=== PATIENT | female | born 1945 | race Caucasian/White ===

== ENCOUNTER 2022-09-25 22:35 | Inpatient (IN) | payer MEDICARE, OTHER ==
[~2022-09-25] VITALS: Ht 162.6 cm; Wt 92.1 kg
--- NOTE | 2022-09-25 22:48 | NUR ---
WALTER FROM [facility] FOR SOB, RA 85%, PLACED ON NRB 15LPM SAT 99%. PT IS CONFUSED. CONNECTED TO POX AND HEART MONITOR. ON NRB 8LPM, O2SAT 95%. CONNER CATH NOTED ON ARRIVAL.
--- NOTE | 2022-09-25 22:50 | NUR ---
CHARI GRANDCHILD [phone]
--- NOTE | 2022-09-25 22:57 | NUR ---
LFA20G EST UNABLE TO GET BLOOD
--- NOTE | 2022-09-25 22:57 | NUR ---
URINE COLLECTED AND SENT TO LAB
--- NOTE | 2022-09-25 22:58 | NUR ---
LAB AT BEDSIDE
--- NOTE | 2022-09-25 23:04 | NUR ---
MOVE SHEET SUBMITTED.
--- NOTE | 2022-09-25 23:08 | NUR ---
XRAY AT BEDSIDE
--- NOTE | 2022-09-25 23:10 | NUR ---
COVID SWAB DONE AND SENT TO LAB
[2022-09-25] MEDS ORDERED: DILTIAZEM HCL 25 MG IV ONE (23:21)
[2022-09-25] MEDS ORDERED: DILTIAZEM HCL 50 MG IV IV ONE (23:30)
[2022-09-25 23:41] LABS: BASOPHILS % (AUTO) 0.2 % (0.0-2.0); EOSINOPHILS % (AUTO) 3.5 % (0.0-6.0); HEMATOCRIT 29 % (33-45); HEMOGLOBIN 9.2 g/dL (11.5-14.8); LYMPHOCYTES # (AUTO) 0.4 K/uL (0.8-4.8); LYMPHOCYTES % (AUTO) 3.5 % (20.0-44.0); MEAN CORPUSCULAR HGB CONC 32 g/dl (31.0-36.0); MEAN CORPUSCULAR VOLUME 83 fL (82-100); MONOCYTES % (AUTO) 8.4 % (2.0-12.0); NEUTROPHILS # (AUTO) 9.6 K/uL (1.8-8.9); NEUTROPHILS % (AUTO) 84.4 % (43.0-81.0); PLATELET COUNT (AUTO) 257 K/uL (150-450); WHITE BLOOD COUNT (AUTO) 11.4 K/uL (4.3-11.0)
[2022-09-25 23:57] LABS: CALCIUM, SERUM 9.4 mg/dL (8.5-10.1); CARBON DIOXIDE 33 mmol/L (21-32); CHLORIDE 96 mmol/L (98-107); CREATININE 2.5 mg/dL (0.6-1.3); GLUCOSE 230 mg/dL (74-106); POTASSIUM 4.2 mmol/L (3.5-5.1); SODIUM SERUM 137 mmol/L (136-145); UREA NITROGEN, BLOOD 63 mg/dL (7-18)
[2022-09-26] VITALS (15 sets, daily range): BP systolic 123–157; BP diastolic 55–99
--- NOTE | 2022-09-26 00:11 | NUR ---
TROP 53
[2022-09-26 00:15] LABS: ALANINE AMINOTRANSFERASE 28 U/L (12-78); ALBUMIN 2.4 g/dL (3.4-5.0); ALKALINE PHOSPHATASE 101 U/L (46-116); ASPARTATE AMINOTRANSFERASE 33 U/L (15-37); BILIRUBIN,DIRECT 0.3 mg/dL (0.0-0.2); BILIRUBIN,TOTAL 0.5 mg/dL (0.2-1.0); TOTAL PROTEIN, SERUM 7.6 g/dL (6.4-8.2)
[2022-09-26] MEDS ORDERED: ASPIRIN 325 MG TABLET PO ONE (00:30)
[2022-09-26] MEDS ORDERED: FUROSEMIDE 40 MG/4 ML VIAL ONE (00:54)
[2022-09-26] MEDS ORDERED: ASPIRIN 325 MG TABLET ONE (00:54)
[2022-09-26] MEDS ORDERED: FUROSEMIDE 40 MG/4 ML VIAL IV ONE (01:00)
[2022-09-26 01:10] LABS: BILIRUBIN,URINE NEGATIVE (NEGATIVE); COLOR,URINE DARK YELLOW (YELLOW); LEUKOCYTE ESTERASE ,URINE TRACE (NEGATIVE); NITRITE, URINE NEGATIVE (NEGATIVE); PH,URINE 5.5 (5.0-8.0); PROTEIN,URINE 2+ mg/dl (NEGATIVE); UGLUCOSE TRACE mg/dL (NEGATIVE); UROBILINOGEN,URINE 0.2 EU/dL (0.2)
[2022-09-26 01:13] LABS: BACTERIA,URINE Rare /HPF (None Seen); SQUAMOUS EPITHELIAL CELL,UR Few /HPF (None Seen)
--- NOTE | 2022-09-26 02:11 | NUR ---
[facility] PAGED
--- NOTE | 2022-09-26 03:03 | NUR ---
report given to jennifer zarate for neno
--- NOTE | 2022-09-26 03:08 | NUR ---
RN ADMITTING NOTE RECEIVED PATIENT FROM ER VIA GURNEY ACCOMPANIED BY 2 ER STAFF, TRANSFERRED TO BED VIA 3 PERSON ASSIST, PT AO X 3-4, IN NO ACUTE DISTRESS, SATURATION AT 94% ON 5L VIA NC, SR ON THE MONITOR , HR IS 95. IV LINE AT LFA 20G, AND RAC 20G PATENT AND FLUSHING WELL. CONNER CATHETER DRAINING TO A CLEAR, YELLOW OUTPUT. COMPREHENSIVE ASSESSMENT DONE, NO SKIN ISSUES NOTED. SAFETY MEASURES IN PLACE, BED IS LOCKED AND AT LOWEST POSITION, HOB ELEVATED, CALL LIGHT WITHIN REACH OF PATIENT. WILL MONITOR AND FOLLOW UP ON ADMITTING ORDERS.
--- NOTE | 2022-09-26 03:23 | NUR ---
pt transferred to [place] via acls protocol
[2022-09-26] MEDS ORDERED: HYDR-500 PO (03:52)
[2022-09-26] MEDS ORDERED: CYAN10006 IM (03:52)
[2022-09-26] MEDS ORDERED: MUPI22OI2 TP (03:52)
[2022-09-26] MEDS ORDERED: COLC0.6C3 PO (03:52)
[2022-09-26] MEDS ORDERED: ONDA4TAB11 PO (03:52)
[2022-09-26] MEDS ORDERED: SIME80TA15 PO (03:52)
[2022-09-26] MEDS ORDERED: SPIR25TA6 PO (03:52)
[2022-09-26] MEDS ORDERED: DIPH1TAB PO (03:52)
[2022-09-26] MEDS ORDERED: FLUT100D NS (03:52)
[2022-09-26] MEDS ORDERED: EZET10TA16 PO (03:52)
[2022-09-26] MEDS ORDERED: TEMA15CA PO (03:52)
[2022-09-26] MEDS ORDERED: CLOP75TA15 PO (03:52)
[2022-09-26] MEDS ORDERED: AMLO-212 PO (03:52)
[2022-09-26] MEDS ORDERED: FENO145T21 PO (03:52)
[2022-09-26] MEDS ORDERED: ERGO500040 PO (03:52)
[2022-09-26] MEDS ORDERED: LINA290C PO (03:52)
[2022-09-26] MEDS ORDERED: METO-357 PO (03:52)
[2022-09-26] MEDS ORDERED: IRBE1TAB41 PO (03:52)
[2022-09-26] MEDS ORDERED: INSU100V42 PO (03:52)
[2022-09-26] MEDS ORDERED: CLON0.1T PO (03:52)
[2022-09-26] MEDS ORDERED: FURO20TA4 PO (03:52)
[2022-09-26] MEDS ORDERED: hydrOXYzine HCL SYRUP 10 MG/5 ML UDC PO PRN (04:30)
[2022-09-26] MEDS ORDERED: DEXTROSE 50%-WATER 50 ML DISP.SYRIN IV PRN (04:30)
[2022-09-26] MEDS ORDERED: ONDANSETRON HCL/PF 4 MG/2 ML VIAL IVP PRN (04:30)
[2022-09-26] MEDS ORDERED: CLONIDINE HCL 0.1 MG TABLET PO PRN (04:30)
[2022-09-26 04:45] LABS: BASOPHILS % (AUTO) 0.3 % (0.0-2.0); EOSINOPHILS % (AUTO) 4.2 % (0.0-6.0); HEMATOCRIT 27 % (33-45); HEMOGLOBIN 8.8 g/dL (11.5-14.8); LYMPHOCYTES # (AUTO) 0.5 K/uL (0.8-4.8); LYMPHOCYTES % (AUTO) 4.5 % (20.0-44.0); MEAN CORPUSCULAR HGB CONC 32 g/dl (31.0-36.0); MEAN CORPUSCULAR VOLUME 83 fL (82-100); MONOCYTES % (AUTO) 10.2 % (2.0-12.0); NEUTROPHILS # (AUTO) 8.1 K/uL (1.8-8.9); NEUTROPHILS % (AUTO) 80.8 % (43.0-81.0); PLATELET COUNT (AUTO) 256 K/uL (150-450); RED BLOOD CELL COUNT(AUTO) 3.29 MIL/uL (4.0-5.2)
[2022-09-26 05:15] LABS: CALCIUM, SERUM 8.8 mg/dL (8.5-10.1); CARBON DIOXIDE 31 mmol/L (21-32); CHLORIDE 94 mmol/L (98-107); CREATININE 2.3 mg/dL (0.6-1.3); GLUCOSE 217 mg/dL (74-106); MAGNESIUM 1.8 mg/dL (1.8-2.4); PHOSPHORUS 5.1 mg/dL (2.5-4.9); POTASSIUM 4.3 mmol/L (3.5-5.1); SODIUM SERUM 133 mmol/L (136-145); UREA NITROGEN, BLOOD 66 mg/dL (7-18)
[2022-09-26] MEDS ORDERED: CEFEPIME 2 GM in IV D5W 100 ML IV ONE (05:30)
[2022-09-26] MEDS ORDERED: CEFEPIME 1 GM VIAL ONE (05:34)
[2022-09-26 05:41] LABS: CHOLESTEROL 83 mg/dL (<200); HDL CHOLESTEROL 14 mg/dL (40-60); LDL 36 mg/dL (0-99); TRIGLYCERIDES 176 mg/dL (30-150)
--- NOTE | 2022-09-26 07:00 | NUR ---
OPEN ENGINE PILOT NOTE: AWAKE AND ALERT X4. MOIST ORAL MUCOSA. ON 02 5LPM NC SATING AT 93%. RHEUMATOLOGY NURSE SINUS RHYTHM 96. DENIES PAIN OR DISCOMFORT. CONNER CATHETER IN PLACE WITH YELLOW URINE. HOB ELEVATED. BILATERAL HALF SIDE RAILS UP X2. BED IN LOW POSITION, EXIT ALARM ON, CALL LIGHT IN REACH. DECLINES PAIN OR DISCOMFORT. IV LINES PATENT, NO S/S OF COMPLICATIONS.
[2022-09-26] MEDS: BLOOD SUGAR DIAGNOSTIC 1 EACH STRIP IN SCH ×4 (07:58→21:42)
[2022-09-26] MEDS: INSULIN REGULAR, HUMAN 100 UNIT/ML 3 ML VIAL SQ PRN ×4 (08:00→21:44)
[2022-09-26 09:00] LABS: ABG BASE EXCESS 3.4 mmol/L; ABG OXYGEN SATURATION 90.2 % (92.0-98.5); ABG PH 7.346 (7.350-7.450); ABG PO2 63.7 mmHg (75.0-100.0); AaDO2 157.1 mmHg; COHb 0.5 % (0.5-1.5); MetHb 0.2 % (0.0-1.5); O2Hb 89.6 % (94.0-97.0); SITE, ABG Right Radial; VENT MODE, BG NASAL CANNULA
[2022-09-26] MEDS: FLUTICASONE PROPIONATE 16 GM BOTTLE NS SCH ×2 (09:04→16:22)
[2022-09-26] MEDS: CLOPIDOGREL BISULFATE 75 MG TABLET PO SCH (09:05)
[2022-09-26] MEDS: EZETIMIBE 10 MG TABLET PO SCH (09:05)
[2022-09-26] MEDS: AMLODIPINE BESYLATE 5 MG TABLET PO SCH (09:05)
[2022-09-26] MEDS: COLCHICINE 0.6 MG TABLET PO SCH (09:05)
[2022-09-26] MEDS: METOPROLOL SUCCINATE 50 MG TAB.SR.24H PO SCH (09:06)
[2022-09-26] MEDS: FENOFIBRATE NANOCRYS (145 MG) 145 MG TABLET PO SCH (09:09)
[2022-09-26] MEDS: HEPARIN SODIUM, PORCINE 5000 UNITS/1 ML VIAL SQ SCH ×2 (09:13→21:20)
[2022-09-26] MEDS: FUROSEMIDE 100 MG/10 ML VIAL IV SCH ×3 (09:15→16:17)
--- NOTE | 2022-09-26 10:13 | NUR ---
Bedside report given to Lili ICU nurse.
--- NOTE | 2022-09-26 10:15 | NUR ---
PATIENT TRANSFERRED TO ICU FOR RESCUE BIPAP. PATIENT AWAKE, ALERT AND ORIENTED UPON ARRIVAL ON O2 N/C AT 4L . NO RESPIRATORY DISTRESS. SR ON 90'S WITH OCCASIONAL PAC'S ON MONITOR. SPO2 88-91 %. SEEN BY RT, MAINTAINED AT 3L N/C FOR NOW SINCE PATIENT IS FULLY AWAKE. WILL CONTINUE TO MONITOR CLOSELY. AWAITS FOR SOFTWARE QUALITY AUTOMATION ENGINEER.
--- NOTE | 2022-09-26 10:31 | NUR ---
1010: Patient transferred to ICU as ordered with bed, Elizabeth granddaughter at bedside.
--- NOTE | 2022-09-26 11:02 | NUR ---
RN NOTES RECEIVED REPORT FROM JIN DOE FOR CONTINUATION OF CARE. PT LOOKS COMFORTABLE ON 5L NC W/NO SIGNS OF SOB AT THIS TIME.
--- NOTE | 2022-09-26 12:50 | NUR ---
RN NOTES NOTIFIED EWSLEY (MANAGER ETHICS) THAT PT IS COMPLAINING OF CONSTIPATION. RECEIVED ONE TIME ORDER FOR DULCOLAX 10 MG SUPPOSITORY. IF SUPPOSITORY DOESN'T WORK, RECEIVED ORDER TO PLACE A ONE TIME FLEET ENEMA.
[2022-09-26] MEDS ORDERED: BISACODYL SUPP (10 MG) 10 MG/SUPP.RECT SUPP.RECT RC PRN (13:00)
--- NOTE | 2022-09-26 16:13 | NUR ---
NM LUNG VQ WAS COMPLETED. TECH:RB
[2022-09-26] MEDS: POLYETHYLENE GLYCOL 3350 17 GM POWD.PACK PO SCH (16:24)
[2022-09-26] MEDS ORDERED: NA PHOS,M-B/NA PHOS,DI-BA 1 EA ENEMA RC ONE (16:30)
--- NOTE | 2022-09-26 19:41 | NUR ---
RN CLOSING NOTES PT LOOKS COMFORTABLE. NO COMPLAINT OF PAIN AT THIS TIME, ALL DUE MEDS GIVEN. REPORT GIVEN TO ARJUN DOE FOR CONTINUATION OF CARE.
--- NOTE | 2022-09-26 19:45 | NUR ---
RN NOTE Received pt in bed, alert, awake, and verbally responsive. Pt. on 3L O2 via NC, O2 sat- 87-90%, noted with slight SOB. Attached to bedside monitor, reading SR HR95. Denies pain or discomfort at this time. PIV access on LFA #20G and RAC #20G, patent and flush well, both on SL. Stokes cath in placed, patent and secured, draining clear yellow urine by gravity. Safety precaution implemented. Call light light within easy reach. HOB elevated for comfort. Family at bedside. Will cont POC.
[2022-09-27] VITALS (19 sets, daily range): BP systolic 122–186; BP diastolic 52–103
[2022-09-27] MEDS: CEFEPIME 2 GM in IV D5W 100 ML IV SCH (05:17)
[2022-09-27 05:23] LABS: BASOPHILS % (AUTO) 0.2 % (0.0-2.0); EOSINOPHILS % (AUTO) 4.2 % (0.0-6.0); HEMATOCRIT 27 % (33-45); HEMOGLOBIN 8.7 g/dL (11.5-14.8); LYMPHOCYTES # (AUTO) 0.4 K/uL (0.8-4.8); MEAN CORPUSCULAR HGB CONC 33 g/dl (31.0-36.0); MEAN CORPUSCULAR VOLUME 83 fL (82-100); MONOCYTES # (AUTO) 0.9 K/uL (0.1-1.30); MONOCYTES % (AUTO) 10.7 % (2.0-12.0); NEUTROPHILS # (AUTO) 6.7 K/uL (1.8-8.9); NEUTROPHILS % (AUTO) 79.9 % (43.0-81.0); PLATELET COUNT (AUTO) 293 K/uL (150-450); WHITE BLOOD COUNT (AUTO) 8.4 K/uL (4.3-11.0)
[2022-09-27 05:39] LABS: ABG OXYGEN SATURATION 88.1 % (92.0-98.5); ABG PCO2 58.3 mmHg (35.0-45.0); ABG PH 7.365 (7.350-7.450); ABG PO2 61.8 mmHg (75.0-100.0); AaDO2 98.2 mmHg; COHb 0.5 % (0.5-1.5); MetHb 0.3 % (0.0-1.5); O2Hb 87.4 % (94.0-97.0); SITE, ABG Right Radial; VENT MODE, BG N/C 32%
[2022-09-27 05:54] LABS: ALANINE AMINOTRANSFERASE 32 U/L (12-78); ALBUMIN 2.2 g/dL (3.4-5.0); ALKALINE PHOSPHATASE 99 U/L (46-116); ASPARTATE AMINOTRANSFERASE 30 U/L (15-37); BILIRUBIN,TOTAL 0.4 mg/dL (0.2-1.0); CARBON DIOXIDE 33 mmol/L (21-32); CHLORIDE 94 mmol/L (98-107); CREATININE 2.4 mg/dL (0.6-1.3); GLUCOSE 216 mg/dL (74-106); PHOSPHORUS 6.6 mg/dL (2.5-4.9); POTASSIUM 4.3 mmol/L (3.5-5.1); SODIUM SERUM 136 mmol/L (136-145); TOTAL PROTEIN, SERUM 7.2 g/dL (6.4-8.2); UREA NITROGEN, BLOOD 78 mg/dL (7-18)
[2022-09-27 06:05] LABS: THYROID STIMULATING HORMONE 1.008 uIU/mL (0.358-3.74)
[2022-09-27 06:19] LABS: IRON, SERUM 38 ug/dl (50-175); TOTAL IRON BINDING CAPACITY 241 ug/dl (250-450)
--- NOTE | 2022-09-27 06:50 | NUR ---
RN NOTE Pt remains in stable condition. No significant changes noted during the shift. No change on LOC. Remains on O2, currently on 2L via NC, no SOB, no acute resp distress noted, O2 sat- 95%. Afebrile. All needs attended. Kept pt clean, dry and comfortable. Call light within reach. HOB elevated. Safety precautions implemented. Bed locked and in lowest position, bed alarm on. Will endorse to AM shift nurse for continuity of care.
--- NOTE | 2022-09-27 07:00 | NUR ---
PHOTOGRAMMETRIST OPENING NOTES: RECEIVED PT IN BED AWAKE ALERT AND ORIENTED X 4, NOT IN PAIN OR DISCOMFORT, WITH MILD SOB, ON O2 2LITER VIA NC, O2 SAT 94%LEFT FA SALINE LOCK PATENT AND FLUSHING WELL AND RUNNING NS TKO,BED IN LOW AND LOCKED POSITION, CALL LIGHT WITHIN REACH, SIDE RAILS UP. CONNER CATHETER PATENT AND DRAINING WILL, WILL MONITOR
--- NOTE | 2022-09-27 07:00 | NUR ---
RN NOTE Critical ABG result relayed to KESHA Hernandez. Awaiting for reply. Will endorse to AM shift nurse
[2022-09-27] MEDS: BLOOD SUGAR DIAGNOSTIC 1 EACH STRIP IN SCH ×4 (07:43→22:21)
[2022-09-27] MEDS: INSULIN REGULAR, HUMAN 100 UNIT/ML 3 ML VIAL SQ PRN ×4 (07:44→22:38)
[2022-09-27] MEDS ORDERED: BUMETANIDE INJ 16 MG in IV NS 0.9% 16 ML IV ONE (08:00)
[2022-09-27] MEDS: FLUTICASONE PROPIONATE 16 GM BOTTLE NS SCH ×2 (08:25→17:00)
[2022-09-27] MEDS: METOPROLOL SUCCINATE 50 MG TAB.SR.24H PO SCH (08:25)
[2022-09-27] MEDS: FENOFIBRATE NANOCRYS (145 MG) 145 MG TABLET PO SCH (08:25)
[2022-09-27] MEDS: CLOPIDOGREL BISULFATE 75 MG TABLET PO SCH (08:25)
[2022-09-27] MEDS: AMLODIPINE BESYLATE 5 MG TABLET PO SCH (08:26)
[2022-09-27] MEDS: COLCHICINE 0.6 MG TABLET PO SCH (08:26)
[2022-09-27] MEDS: EZETIMIBE 10 MG TABLET PO SCH (08:26)
[2022-09-27] MEDS: HEPARIN SODIUM, PORCINE 5000 UNITS/1 ML VIAL SQ SCH ×2 (08:27→22:20)
[2022-09-27] MEDS ORDERED: LOSARTAN/HCTZ 50-12.5MG/ 1 EA TABLET PO SCH (09:00)
[2022-09-27] MEDS: POLYETHYLENE GLYCOL 3350 17 GM POWD.PACK PO SCH (09:00)
--- NOTE | 2022-09-27 09:11 | NUR ---
RN NOTES: PT REFUSED MIRALAX SAID SHE HAD 3 BM LAST NIGHT AND 1 AROUND 7:30 AM
--- NOTE | 2022-09-27 10:03 | NUR ---
RN NOTES: O2 SAT 84% ON 4 LITER OXYGEN VIA NC TITRATED TO 4L/MIN VIA NC O2 SAT BECAME 90%
[2022-09-27] MEDS: ACETAMINOPHEN 325 MG TABLET PO PRN (16:40)
--- NOTE | 2022-09-27 19:31 | NUR ---
MECHANICAL ENGINEERING TECHNOLOGIST CLOSING NOTES: AWAKE AND ALERT X4. . ON 02 4LPM NC SATING AT 93%. TRACK OILER SINUS RHYTHM 96. DENIES PAIN OR DISCOMFORT. CONNER CATHETER IN PLACE WITH YELLOW URINE. HOB ELEVATED. BILATERAL HALF SIDE RAILS UP X2. BED IN LOW POSITION, EXIT ALARM ON, CALL LIGHT IN REACH. DECLINES PAIN OR DISCOMFORT. IV LINES PATENT, NO S/S OF COMPLICATIONS.ENDORSED TO OIL HEAT TECHNICIAN RN FOR NATE
--- NOTE | 2022-09-27 21:30 | NUR ---
MUSHROOM PACKER OPENING NOTE PATIENT AWAKE IN BED WITH FAMILY AT BEDSIDE, PRIMARILY MONTENEGRIN SPEAKING BUT ABLE TO MAKE BASIC NEEDS KNOWN. PATIENT STABLE ON 4 LPM OF O2 VIA NASAL CANNULA, NO S/S OF DISTRESS OR SOB NOTED, BREATHING EVEN AND UNLABORED. IV ACCESS ON RAC #20G AND LFA #20G INTACT AND FLUSHING WELL, RUNNING BUMEX @ 10 ML/HR. CONNER CATHETER IN PLACE AND DRAINING URINE BY GRAVITY. SAFETY MEASURES IN PLACE: CALL LIGHT WITHIN REACH, SIDE RAILS UP X 2, BED LOCKED IN LOWEST POSITION, HOB ELEVATED, BED ALARM ON. WILL CONTINUE TO MONITOR PATIENT
[2022-09-27] MEDS ORDERED: INSULIN GLARGINE, 100 UNIT/ML CARTRIDGE SQ SCH (22:00)
[2022-09-28] VITALS: BP 150/80
[2022-09-28 04:00] VITALS: BP 144/64
[2022-09-28] MEDS: ACETAMINOPHEN 325 MG TABLET PO PRN (04:24)
--- NOTE | 2022-09-28 04:27 | NUR ---
RN NOTE PRN TYLENOL GIVE FOR GENERALIZED BODY ACHE 3/10 ON A NUMERIC PAIN SCALE. TOLERATED WELL.
[2022-09-28] MEDS: CEFEPIME 2 GM in IV D5W 100 ML IV SCH (06:08)
--- NOTE | 2022-09-28 07:31 | NUR ---
SCRAPER OPERATOR CLOSING NOTE PATIENT AWAKE IN BED, PRIMARILY PASHTO SPEAKING BUT ABLE TO MAKE BASIC NEEDS KNOWN. PATIENT STABLE ON 4 LPM OF O2 VIA NASAL CANNULA, NO S/S OF DISTRESS OR SOB NOTED, BREATHING EVEN AND UNLABORED. IV ACCESS ON RAC #20G AND LFA #20G INTACT AND FLUSHING WELL. CONNER CATHETER IN PLACE AND DRAINING YELLOW URINE BY GRAVITY, 900 ML OUTPUT. NO SIGNIFICANT CHANGES THIS SHIFT, PATIENT SLEPT WELL THROUGH THE NIGHT, MEDICATIONS GIVEN ORDERED, PT NEEDS MET THROUGHOUT SHIFT. SAFETY MEASURES IN PLACE: CALL LIGHT WITHIN REACH, SIDE RAILS UP X 2, BED LOCKED IN LOWEST POSITION, HOB ELEVATED, BED ALARM ON. ENDORSED TO DAYSHIFT RN FOR CONTINUITY OF CARE
[2022-09-28] MEDS: BLOOD SUGAR DIAGNOSTIC 1 EACH STRIP IN SCH ×4 (07:32→22:28)
[2022-09-28 07:43] LABS: BASOPHILS % (AUTO) 0.3 % (0.0-2.0); EOSINOPHILS % (AUTO) 6.4 % (0.0-6.0); HEMATOCRIT 29 % (33-45); HEMOGLOBIN 9.1 g/dL (11.5-14.8); LYMPHOCYTES # (AUTO) 0.5 K/uL (0.8-4.8); LYMPHOCYTES % (AUTO) 8.7 % (20.0-44.0); MEAN CORPUSCULAR HGB CONC 32 g/dl (31.0-36.0); MEAN CORPUSCULAR VOLUME 83 fL (82-100); MONOCYTES # (AUTO) 0.7 K/uL (0.1-1.30); NEUTROPHILS # (AUTO) 4.1 K/uL (1.8-8.9); NEUTROPHILS % (AUTO) 71.6 % (43.0-81.0); PLATELET COUNT (AUTO) 312 K/uL (150-450); RED BLOOD CELL COUNT(AUTO) 3.42 MIL/uL (4.0-5.2); WHITE BLOOD COUNT (AUTO) 5.8 K/uL (4.3-11.0)
--- NOTE | 2022-09-28 07:50 | NUR ---
FLOOR WAXER OPENING NOTE PATIENT AWAKE IN BED, PRIMARILY FRISIAN SPEAKING BUT ABLE TO MAKE BASIC NEEDS KNOWN. PATIENT STABLE ON 4 LPM OF O2 VIA NASAL CANNULA, NO S/S OF DISTRESS OR SOB NOTED, BREATHING EVEN AND NON LABORED. IV ACCESS ON RAC #20G AND LFA #20G INTACT AND FLUSHING WELL, SL. CONNER CATHETER IN PLACE AND DRAINING URINE BY GRAVITY. SAFETY MEASURES IN PLACE: CALL LIGHT WITHIN REACH, SIDE RAILS UP X 2, BED LOCKED IN LOWEST POSITION, HOB ELEVATED, BED ALARM ON. WILL CONTINUE TO MONITOR PATIENT.
[2022-09-28 08:00] VITALS: BP 126/52
[2022-09-28] MEDS: INSULIN REGULAR, HUMAN 100 UNIT/ML 3 ML VIAL SQ PRN ×3 (08:02→17:13)
[2022-09-28 08:14] LABS: ALANINE AMINOTRANSFERASE 30 U/L (12-78); ALBUMIN 2.2 g/dL (3.4-5.0); ALKALINE PHOSPHATASE 102 U/L (46-116); ASPARTATE AMINOTRANSFERASE 36 U/L (15-37); BILIRUBIN,TOTAL 0.4 mg/dL (0.2-1.0); CALCIUM, SERUM 9.1 mg/dL (8.5-10.1); CARBON DIOXIDE 34 mmol/L (21-32); CHLORIDE 94 mmol/L (98-107); CREATININE 2.4 mg/dL (0.6-1.3); GLUCOSE 287 mg/dL (74-106); MAGNESIUM 1.8 mg/dL (1.8-2.4); PHOSPHORUS 6.4 mg/dL (2.5-4.9); POTASSIUM 4.6 mmol/L (3.5-5.1); SODIUM SERUM 135 mmol/L (136-145); TOTAL PROTEIN, SERUM 7.3 g/dL (6.4-8.2)
[2022-09-28 08:19] LABS: UREA NITROGEN, BLOOD 85 mg/dL (7-18)
[2022-09-28] MEDS: POLYETHYLENE GLYCOL 3350 17 GM POWD.PACK PO SCH (08:32)
[2022-09-28] MEDS: METOPROLOL SUCCINATE 50 MG TAB.SR.24H PO SCH (08:33)
[2022-09-28] MEDS: AMLODIPINE BESYLATE 5 MG TABLET PO SCH (08:33)
[2022-09-28] MEDS: CLOPIDOGREL BISULFATE 75 MG TABLET PO SCH (08:33)
[2022-09-28] MEDS: COLCHICINE 0.6 MG TABLET PO SCH (08:35)
[2022-09-28] MEDS: HEPARIN SODIUM, PORCINE 5000 UNITS/1 ML VIAL SQ SCH ×2 (08:35→21:16)
[2022-09-28] MEDS ORDERED: CYANOCOBALAMIN 1,000 MCG/ML VIAL IM SCH (09:00)
[2022-09-28] MEDS: FLUTICASONE PROPIONATE 16 GM BOTTLE NS SCH ×2 (09:45→16:20)
[2022-09-28] MEDS: EZETIMIBE 10 MG TABLET PO SCH (09:47)
[2022-09-28] MEDS: FENOFIBRATE NANOCRYS (145 MG) 145 MG TABLET PO SCH (10:23)
[2022-09-28 12:00] VITALS: BP 141/63
[2022-09-28 16:00] VITALS: BP 141/57
[2022-09-28] MEDS: IPRATROPIUM NEB FS 0.5 MG/2.5 ML AMPUL.NEB NEB SCH ×2 (16:16→20:09)
[2022-09-28 17:31] LABS: D-DIMER 1.87 mg/L(FEU (0.17-0.50)
--- NOTE | 2022-09-28 17:45 | NUR ---
RN NOTE PATIENT REFUSED BLOOD DRAW FOR PLATELET, PT STATED THEY GOT BLOOD EARLIER, EXPLAINED RISKS AND BENEFITS, ASKED IF THEY CAN COME LATER, STILL REFUSING. WILL CONTINUE TO MONITOR.
--- NOTE | 2022-09-28 18:50 | NUR ---
ADMINISTRATIVE SERVICES SPECIALIST CLOSING NOTE PATIENT AWAKE IN BED, PRIMARILY YAKUT SPEAKING BUT ABLE TO MAKE BASIC NEEDS KNOWN. PATIENT STABLE ON 4 LPM OF O2 VIA NASAL CANNULA, NO S/S OF DISTRESS OR SOB NOTED, BREATHING EVEN AND NON LABORED. IV ACCESS ON RAC #20G AND LFA #20G INTACT AND FLUSHING WELL. CONNER CATHETER IN PLACE AND DRAINING YELLOW URINE BY GRAVITY, 700 ML OUTPUT. MEDICATIONS GIVEN ORDERED, PT NEEDS MET THROUGHOUT SHIFT. PT REFUSED CLEANING BY FLYING TEACHER, FLYING TEACHER CHANGED HER, PT GOT AGITATED, EXPLAINED TO THE PATIENT WE NEED TO CLEAN HER SINCE SHE HAD BOWEL MOVEMENT. SAFETY MEASURES IN PLACE: CALL LIGHT WITHIN REACH, SIDE RAILS UP X 2, BED LOCKED IN LOWEST POSITION, HOB ELEVATED, BED ALARM ON. ENDORSED TO ONCOMING RN FOR NATE.
--- NOTE | 2022-09-28 19:15 | NUR ---
RN NOTE Received pt in bed, alert, awake, and verbally responsive. Pt. on 4L O2 via NC, O2 sat- 90-92%, noted with slight SOB. Attached to external monitor worker, reading SR. Denies pain or discomfort at this time. PIV access on LFA #20G, patent and flush well, on SL. Stokes cath in placed, patent and secured, draining clear dark radha urine by gravity. Safety precaution implemented. Call light light within easy reach. HOB elevated for comfort. Will cont POC.
[2022-09-28 20:00] VITALS: BP 130/78
--- NOTE | 2022-09-28 20:58 | NUR ---
RT NOTE PATIENT IS AWAKE AND ALERT ON 4LPM. PATIENT IS REFUSING TO USE BIPAP AT THIS TIME. PATIENT STATES SHE FEELS SHE CANNOT BREATHE WITH THE MASK. EXPLAINED TO PATIENT HOW BIPAP WILL AID HER BREATHING WHILE SLEEPING PLUS OTHER BENEFITS BUT PATIENT STILL REFUSING. PRIMARY NURSE IS AT THE BEDSIDE AT THIS TIME. NO RESPIRATORY DISTRESS NOTED ON 4LPM NASAL CANNULA. WILL CONTINUE TO MONITOR PATIENT.
--- NOTE | 2022-09-28 21:00 | NUR ---
RN NOTE Pt alert, orientedx4, refuses NOC Bipap, offered x3, risks and benefits explained. RT at bedside. Pt currently on 4L O2 via NC, well sandi. no SOB, no acute resp distress.
[2022-09-28] MEDS: *INSULIN REGULAR(HUMULIN R)HUM 100 UNIT/ML VIAL SQ PRN (22:12)
[2022-09-28] MEDS: INSULIN GLARGINE, 100 UNIT/ML CARTRIDGE SQ SCH (22:22)
[2022-09-29] VITALS: BP 141/82
[2022-09-29] MEDS: IPRATROPIUM NEB FS 0.5 MG/2.5 ML AMPUL.NEB NEB SCH ×4 (02:24→20:10)
[2022-09-29 04:00] VITALS: BP 150/70
[2022-09-29] MEDS: CEFEPIME 2 GM in IV D5W 100 ML IV SCH (06:23)
[2022-09-29 07:01] LABS: BASOPHILS % (AUTO) 0.7 % (0.0-2.0); EOSINOPHILS % (AUTO) 6.5 % (0.0-6.0); HEMATOCRIT 28 % (33-45); HEMOGLOBIN 9.2 g/dL (11.5-14.8); LYMPHOCYTES # (AUTO) 0.6 K/uL (0.8-4.8); LYMPHOCYTES % (AUTO) 9.9 % (20.0-44.0); MEAN CORPUSCULAR HGB CONC 32 g/dl (31.0-36.0); MEAN CORPUSCULAR VOLUME 84 fL (82-100); MONOCYTES # (AUTO) 0.7 K/uL (0.1-1.30); NEUTROPHILS # (AUTO) 4.5 K/uL (1.8-8.9); NEUTROPHILS % (AUTO) 70.9 % (43.0-81.0); PLATELET COUNT (AUTO) 324 K/uL (150-450); RED BLOOD CELL COUNT(AUTO) 3.38 MIL/uL (4.0-5.2); WHITE BLOOD COUNT (AUTO) 6.3 K/uL (4.3-11.0)
[2022-09-29 07:17] LABS: CALCIUM, SERUM 9.2 mg/dL (8.5-10.1); CARBON DIOXIDE 34 mmol/L (21-32); CHLORIDE 96 mmol/L (98-107); CREATININE 2.4 mg/dL (0.6-1.3); GLUCOSE 210 mg/dL (74-106); MAGNESIUM 1.9 mg/dL (1.8-2.4); PHOSPHORUS 5.4 mg/dL (2.5-4.9); POTASSIUM 4.7 mmol/L (3.5-5.1); SODIUM SERUM 136 mmol/L (136-145)
--- NOTE | 2022-09-29 07:26 | NUR ---
RN NOTE Pt remains in stable condition. No significant changes noted during the shift. No change on LOC. Remains on O2, currently on 4L via NC, no SOB, no acute resp distress noted, O2 sat- 95%. Afebrile. All needs attended. Kept pt clean, dry and comfortable. Call light within reach. HOB elevated. Safety precautions implemented. Bed locked and in lowest position, bed alarm on. Endorsed to AM shift nurse for continuity of care
[2022-09-29 07:28] LABS: UREA NITROGEN, BLOOD 94 mg/dL (7-18)
--- NOTE | 2022-09-29 07:45 | NUR ---
RN OPENING NOTES: RECEIVED PATIENT AWAKE IN BED, A/O X4, PRIMARILY GREENLANDIC SPEAKING BUT ABLE TO MAKE BASIC NEEDS KNOWN. PATIENT ON 4 LPM OF O2 VIA NASAL CANNULA, NO S/S OF DISTRESS OR SOB NOTED, BREATHING EVEN AND NON LABORED. TELE MONITOR READS SR, HR= LOW 80S. IV ACCESS ON LFA #20G INTACT AND FLUSHING WELL. CONNER CATHETER IN PLACE AND DRAINING DARK, YELLOW URINE BY GRAVITY. SAFETY MEASURES IN PLACE: CALL LIGHT AND TABLE WITHIN REACH, SIDE RAILS UP X 2, BED LOCKED IN LOWEST POSITION, HOB ELEVATED, BED ALARM ON, WILL CONT WITH PLAN OF CARE DURING SHIFT.
[2022-09-29] MEDS: BLOOD SUGAR DIAGNOSTIC 1 EACH STRIP IN SCH ×4 (07:59→22:39)
[2022-09-29 08:00] VITALS: BP 129/59
[2022-09-29] MEDS: INSULIN REGULAR, HUMAN 100 UNIT/ML 3 ML VIAL SQ PRN ×4 (08:42→22:42)
[2022-09-29] MEDS: HEPARIN SODIUM, PORCINE 5000 UNITS/1 ML VIAL SQ SCH ×2 (08:43→22:38)
[2022-09-29] MEDS: CLOPIDOGREL BISULFATE 75 MG TABLET PO SCH (08:47)
[2022-09-29] MEDS: COLCHICINE 0.6 MG TABLET PO SCH (08:47)
[2022-09-29] MEDS: METOPROLOL SUCCINATE 50 MG TAB.SR.24H PO SCH (08:48)
[2022-09-29] MEDS: POLYETHYLENE GLYCOL 3350 17 GM POWD.PACK PO SCH (08:49)
[2022-09-29] MEDS: AMLODIPINE BESYLATE 5 MG TABLET PO SCH (08:49)
[2022-09-29] MEDS: FENOFIBRATE NANOCRYS (145 MG) 145 MG TABLET PO SCH (09:04)
[2022-09-29] MEDS: FLUTICASONE PROPIONATE 16 GM BOTTLE NS SCH ×2 (09:05→16:05)
--- NOTE | 2022-09-29 09:30 | NUR ---
RN NOTES; CRIT LAB PT BUN = 94, RECEIVED FROM LAB STAFF FRANTZ, MADE HOSPITALIST AWARE.
[2022-09-29] MEDS: EZETIMIBE 10 MG TABLET PO SCH (10:21)
[2022-09-29 12:00] VITALS: BP 120/52
[2022-09-29 16:00] VITALS: BP 111/57
--- NOTE | 2022-09-29 18:16 | NUR ---
RN CLOSING NOTES: PATIENT AWAKE IN BED, A/O X4, PRIMARILY LATVIAN SPEAKING BUT ABLE TO MAKE BASIC NEEDS KNOWN. PATIENT ON 4 LPM OF O2 VIA NASAL CANNULA, NO S/S OF DISTRESS OR SOB NOTED, BREATHING EVEN AND NON LABORED. TELE MONITOR READS SR, HR= 90. IV ACCESS ON LFA #20G INTACT AND FLUSHING WELL. CONNER CATHETER IN PLACE AND DRAINING YELLOW URINE BY GRAVITY, OUTPUT = 650CC. ALL MEDS GIVEN, KEPT PT CLEAN, DRY AND COMFORTABLE. COMMODE AT BEDSIDE. SAFETY MEASURES IN PLACE: CALL LIGHT AND TABLE WITHIN REACH, SIDE RAILS UP X 2, BED LOCKED IN LOWEST POSITION, HOB ELEVATED, BED ALARM ON, WILL ENDORSE TO PM SHIFT.
--- NOTE | 2022-09-29 19:58 | NUR ---
report given to BROOK Bey for continuity of patient care.
[2022-09-29 20:00] VITALS: BP 111/57
--- NOTE | 2022-09-29 20:20 | NUR ---
RN OPENING NOTES: RECEIVED PATIENT AWAKE IN BED, A/O X4, PRIMARILY MONTSERRATIAN SPEAKING BUT ABLE TO MAKE BASIC NEEDS KNOWN. PATIENT ON O2 4 LPM VIA NASAL CANNULA. NO S/S OF DISTRESS OR SOB NOTED, BREATHING EVEN AND UNLABORED. TELE MONITOR READS SR, HR IN 80S. IV ACCESS ON LEFT FA #20G INTACT AND FLUSHING WELL. CONNER CATHETER IN PLACE AND DRAINING DARK, YELLOW URINE BY GRAVITY. SAFETY MEASURES IN PLACE: CALL LIGHT AND TABLE WITHIN REACH, SIDE RAILS UP X 2, BED LOCKED IN LOWEST POSITION, HOB ELEVATED, BED ALARM ON. WILL CONTINUE TO MONITOR PT.
--- NOTE | 2022-09-29 21:30 | NUR ---
RT NOTE PATIENT IS REFUSING TO WEAR THE BIPAP. PATIENT STATES THE NASAL CANNULA IS GOOD ENOUGH FOR HER. EXPLAINED THE BENEFITS OF BIPAP TO THE PATIENT BUT SHE IS STILL REFUSING. INFORMED THE PRIMARY NURSE ABOUT THE REFUSAL. PATIENT IS CURRENTLY ON 4LPM NASAL CANNULA WITH NO SIGNS OF RESPIRATORY DISTRESS. SPO2 AT 96%.
[2022-09-29] MEDS: INSULIN GLARGINE, 100 UNIT/ML CARTRIDGE SQ SCH (22:46)
[2022-09-30] VITALS: BP 128/67
[2022-09-30] MEDS: IPRATROPIUM NEB FS 0.5 MG/2.5 ML AMPUL.NEB NEB SCH ×4 (01:30→20:35)
[2022-09-30 04:00] VITALS: BP 115/70
[2022-09-30 06:35] LABS: BASOPHILS % (AUTO) 0.7 % (0.0-2.0); EOSINOPHILS % (AUTO) 6.6 % (0.0-6.0); HEMATOCRIT 28 % (33-45); HEMOGLOBIN 8.8 g/dL (11.5-14.8); LYMPHOCYTES # (AUTO) 0.6 K/uL (0.8-4.8); LYMPHOCYTES % (AUTO) 9.2 % (20.0-44.0); MEAN CORPUSCULAR HGB CONC 32 g/dl (31.0-36.0); MEAN CORPUSCULAR VOLUME 83 fL (82-100); MONOCYTES # (AUTO) 0.8 K/uL (0.1-1.30); MONOCYTES % (AUTO) 12.1 % (2.0-12.0); NEUTROPHILS # (AUTO) 4.5 K/uL (1.8-8.9); NEUTROPHILS % (AUTO) 71.4 % (43.0-81.0); PLATELET COUNT (AUTO) 309 K/uL (150-450); RED BLOOD CELL COUNT(AUTO) 3.34 MIL/uL (4.0-5.2); WHITE BLOOD COUNT (AUTO) 6.3 K/uL (4.3-11.0)
[2022-09-30 06:39] LABS: CALCIUM, SERUM 8.8 mg/dL (8.5-10.1); CARBON DIOXIDE 38 mmol/L (21-32); CHLORIDE 94 mmol/L (98-107); CREATININE 2.3 mg/dL (0.6-1.3); GLUCOSE 257 mg/dL (74-106); MAGNESIUM 1.9 mg/dL (1.8-2.4); PHOSPHORUS 4.5 mg/dL (2.5-4.9); POTASSIUM 4.6 mmol/L (3.5-5.1); SODIUM SERUM 135 mmol/L (136-145)
[2022-09-30] MEDS: CEFEPIME 2 GM in IV D5W 100 ML IV SCH (06:40)
--- NOTE | 2022-09-30 06:40 | NUR ---
RN CLOSING NOTE LEFT PATIENT RESTING IN BED, A/O X4, PRIMARILY FIJIAN SPEAKING BUT ABLE TO MAKE BASIC NEEDS KNOWN. PATIENT ON O2 4 LPM VIA NASAL CANNULA. NO S/S OF DISTRESS OR SOB NOTED, BREATHING EVEN AND UNLABORED. TELE MONITOR READS SR, HR IN 80S. IV ACCESS ON LEFT FA #20G INTACT AND FLUSHING WELL. CONNER CATHETER IN PLACE AND DRAINING DARK, YELLOW URINE BY GRAVITY. SAFETY MEASURES IN PLACE: CALL LIGHT AND TABLE WITHIN REACH, SIDE RAILS UP X 2, BED LOCKED IN LOWEST POSITION, HOB ELEVATED, BED ALARM ON. WILL ENDORSE PT TO AM SHIFT NURSE FOR NATE.
[2022-09-30 06:45] LABS: UREA NITROGEN, BLOOD 94 mg/dL (7-18)
--- NOTE | 2022-09-30 07:46 | NUR ---
ASSOCIATE VETERINARIAN OPENING NOTES: RECEIVED PATIENT AWAKE IN BED, A/O X4, PRIMARILY SLOVENIAN SPEAKING BUT ABLE TO MAKE BASIC NEEDS KNOWN. PATIENT ON O2 4 LPM VIA NASAL CANNULA. NO S/S OF DISTRESS OR SOB NOTED, BREATHING EVEN AND UNLABORED. TELE MONITOR READS SR, HR IN 80S. IV ACCESS ON LEFT FA #20G INTACT. CONNER CATHETER IN PLACE DRAINING VIA GRAVITY. SAFETY MEASURES IN PLACE: CALL LIGHT AND TABLE WITHIN REACH, SIDE RAILS UP X 2, BED LOCKED IN LOWEST POSITION, HOB ELEVATED, BED ALARM ON. PLAN OF CARE CONTINUE.
[2022-09-30 08:00] VITALS: BP 151/70
[2022-09-30] MEDS: BLOOD SUGAR DIAGNOSTIC 1 EACH STRIP IN SCH ×4 (08:08→21:29)
[2022-09-30] MEDS: POLYETHYLENE GLYCOL 3350 17 GM POWD.PACK PO SCH (08:33)
[2022-09-30] MEDS: EZETIMIBE 10 MG TABLET PO SCH (08:34)
[2022-09-30] MEDS: COLCHICINE 0.6 MG TABLET PO SCH (08:34)
[2022-09-30] MEDS: AMLODIPINE BESYLATE 5 MG TABLET PO SCH (08:35)
[2022-09-30] MEDS: METOPROLOL SUCCINATE 50 MG TAB.SR.24H PO SCH (08:35)
[2022-09-30] MEDS: CLOPIDOGREL BISULFATE 75 MG TABLET PO SCH (08:35)
[2022-09-30] MEDS: HEPARIN SODIUM, PORCINE 5000 UNITS/1 ML VIAL SQ SCH ×2 (08:37→21:00)
[2022-09-30] MEDS: INSULIN REGULAR, HUMAN 100 UNIT/ML 3 ML VIAL SQ PRN ×3 (08:39→16:40)
[2022-09-30] MEDS: FENOFIBRATE NANOCRYS (145 MG) 145 MG TABLET PO SCH (08:40)
[2022-09-30] MEDS: FLUTICASONE PROPIONATE 16 GM BOTTLE NS SCH ×2 (08:42→16:38)
--- NOTE | 2022-09-30 10:00 | NUR ---
PATIENT REFUSED ALL MORNING MEDICATIONS, NOTED PATIENT SLEEPY AND VERY CONFUSED, NOTED PATIENT HAD DILAUDID AND MORPHINE LAST NIGHT, DR. FUNG NOTIFIED, WITH ORDER TO DC MIR. NOTED AND CARRIED OUT. Addendum: 09/30/22 at 1344 by YESIKA TARANGO RN WRONG PATIENT
--- NOTE | 2022-09-30 10:02 | NUR ---
pt refused exam, RN aware.
--- NOTE | 2022-09-30 11:55 | NUR ---
PATIENT NOTED CRYING STATING SHE WANT'S TO GO HOME, DR. FUNG NOTIFIED.
--- NOTE | 2022-09-30 13:04 | NUR ---
PATIENT STATED SHE HAS BURNING SENSATION ON CONNER SITE, DR. FUNG MADE AWARE, WITH ORDER FOR UA NOTED AND CARRIED OUT.
--- NOTE | 2022-09-30 13:53 | NUR ---
PT REFUSED ABG. SONDRA DOE EXPLAINED PROCEDURE. RN NOTIFIED
--- NOTE | 2022-09-30 14:04 | NUR ---
PATIENT REFUSED ABG,EXPLAINED TO THE PATIENT WITH SPANISH SPEAKING NURSE THE IMPORTANCE OF THE ABG, PATIENT STILL REFUSED, EDUCATE THE PATIENT THE REASON OF ABG AND PATIENT STILL REFUSED, ASKED THE PATIENT WHY PATIENT STATED " THEY ALREADY TOOK BLOOD THIS MORNING" EXPLAINED TO THE PATIENT THAT THIS BLOOD DRAW IS DIFFERENT, PATIENT STILL REFUSED, DR. THOMAS MADE AWARE AND DR. FUNG
[2022-09-30 16:00] VITALS: BP 137/69
--- NOTE | 2022-09-30 18:52 | NUR ---
SURGICAL APPLIANCE FITTER CLOSING NOTES: RECEIVED PATIENT AWAKE IN BED, A/O X4, PRIMARILY DANISH SPEAKING BUT ABLE TO MAKE BASIC NEEDS KNOWN. PATIENT ON O2 4 LPM VIA NASAL CANNULA. NO S/S OF DISTRESS OR SOB NOTED, BREATHING EVEN AND UNLABORED. TELE MONITOR READS SR, HR IN 80S. IV ACCESS ON LEFT FA #20G INTACT. CONNER CATHETER IN PLACE PATENT AND INTACT WITH CLOUDY URINE OUTPUT, UA COLLECTED CALLED LAB PICKED UP. SAFETY MEASURES IN PLACE: CALL LIGHT AND TABLE WITHIN REACH, SIDE RAILS UP X 2, BED LOCKED IN LOWEST POSITION, HOB ELEVATED, BED ALARM ON. WILL ENDORCE NATE TO IT LEAD
--- NOTE | 2022-09-30 19:30 | NUR ---
MACHINE ASSEMBLER FOR PULLER OVER OPENING NOTE RECEIVED PATIENT IN BED, WITH HOB ELEVATED, ALERT AND ORIENTED X4. ROMANSH SPEAKING. AFEBRILE AND NOT IN ANY FORM OF ACUTE DISTRESS. ON O2 INHALATION VIA NASAL CANNULA AT 4LPM. ON TELE MONITORING WITH CURRENT READING OF SR 84. WITH IV ACCESS ON LFA 20G-SL. WITH CONNER CATHETER, INTACT AND DRAINING WELL WITH CLOUDY URINE OUTPUT, URINE SAMPLE WAS ALREADY COLLECTED PER REPORT AND AWAITING FOR RESULT. SAFETY MEASURES IN PLACE. KEPT BED IN LOCKED AND IN LOW POSITION. SIDE RAILS UP X2. ADVISED TO USE THE CALL LIGHT WHEN IN NEED OF ASSISTANCE.
[2022-09-30 19:40] LABS: BILIRUBIN,URINE NEGATIVE (NEGATIVE); COLOR,URINE YELLOW (YELLOW); LEUKOCYTE ESTERASE ,URINE TRACE (NEGATIVE); NITRITE, URINE NEGATIVE (NEGATIVE); PROTEIN,URINE 2+ mg/dl (NEGATIVE); UGLUCOSE 1+ mg/dL (NEGATIVE); UROBILINOGEN,URINE 0.2 EU/dL (0.2)
[2022-09-30 19:54] LABS: BACTERIA,URINE 1+ /HPF (None Seen); RBC,URINE TOO NUMEROUS TO COUN /HPF (0-2); SQUAMOUS EPITHELIAL CELL,UR Few /HPF (None Seen); URIC ACID CRYSTALS,URINE Few /HPF (None Seen); YEAST,URINE Moderate /HPF (None Seen)
[2022-09-30 20:00] VITALS: BP 144/50
--- NOTE | 2022-09-30 21:30 | NUR ---
RCVD PT ON 4L NC AND PLACED ON NOC BIPAP 18/8 ,RATE 16, FIO2 40%. BIPAP PLUGGED INTO RED OUTLET, ALARMS ON AND AUDIBLE. NO RESPIRATOY DISTRESS NOTED AT THIS TIME . WILL CONTINUE TO MONITOR T/O SHIFT.
[2022-09-30] MEDS: *INSULIN REGULAR(HUMULIN R)HUM 100 UNIT/ML VIAL SQ PRN (21:39)
[2022-09-30] MEDS: INSULIN GLARGINE, 100 UNIT/ML CARTRIDGE SQ SCH (21:43)
--- NOTE | 2022-09-30 21:47 | NUR ---
ELECTRONICS DESIGN ENGINEER NOTE RELAYED URINALYSIS RESULT TO COORDINATOR OF PLACEMENT CORNELL AND NOTED THAT HER URINE SAMPLE HAS TO MANY RBC TO COUNT. PATIENT HAS SCHEDULED HEPARIN SQ Q12HRS. AND ORDERED TO HOLD IT FOR NOW. ORDER NOTED AND CARRIED OUT.
--- NOTE | 2022-09-30 22:00 | NUR ---
RN NOTE RT WAS ABLE TO PLACED THE PATIENT ON BIPAP WITH REQUIRED SETTING BUT AT AROUND 2200, PATIENT WAS SCREAMING AND WANTS TO TAKE OFF HER BIPAP CLAIMING THAT SHE CAN'T BREATH AND FEELS SUFFOCATED. REMOVED BIPAP MACHINE REQUESTED AND CONNECTED BACK TO O2 VIA NASAL CANNULA AT 4LPM. RT NOTIFIED.
[2022-10-01] VITALS: BP 144/50
[2022-10-01] MEDS: IPRATROPIUM NEB FS 0.5 MG/2.5 ML AMPUL.NEB NEB SCH ×4 (01:41→19:30)
[2022-10-01 04:00] VITALS: BP 144/67
[2022-10-01] MEDS: CEFEPIME 2 GM in IV D5W 100 ML IV SCH (05:01)
--- NOTE | 2022-10-01 06:30 | NUR ---
INSPECTOR FIBROUS WALLBOARD CLOSING NITE PATIENT IN BED, WITH HOB ELEVATED, ASLEEP BUT EASY TO AROUSE AND RESPONSVE. JORDANIAN SPEAKING. AFEBRILE AND NOT IN ANY FORM OF ACUTE DISTRESS. ON O2 INHALATION VIA NASAL CANNULA AT 4LPM. PATIENT INITIALLY AGREED TO BE PLACED ON BIPAP BUT REMOVED IT AFTER 30MINS. ON TELE MONITORING WITH CURRENT READING OF SR 78. WITH IV ACCESS ON LFA 20G-SL. WITH CONNER CATHETER, INTACT AND DRAINING WELL WITH CLOUDY URINE OUTPUT. MONITORED FOR ANY S/SX. OF HYPO/HYPERGLYCEMIA. MEDICATED ORDERED. SAFETY MEASURES IN PLACE. KEPT BED IN LOCKED AND IN LOW POSITION. SIDE RAILS UP X2. ADVISED TO USE THE CALL LIGHT WHEN IN NEED OF ASSISTANCE. ALL NURSING NEEDS ATTENDED. ENDORSED TO INCOMING SHIFT FOR CONTINUITY OF CARE.
[2022-10-01] MEDS: BLOOD SUGAR DIAGNOSTIC 1 EACH STRIP IN SCH ×4 (06:42→21:58)
[2022-10-01] MEDS: INSULIN REGULAR, HUMAN 100 UNIT/ML 3 ML VIAL SQ PRN ×3 (06:44→17:31)
--- NOTE | 2022-10-01 07:15 | NUR ---
REIMBURSEMENT CONSULTANT OPEN NOTE: ALERT TIMES 3. REORIENTED TO PLACE. ON 02 ORDERED, SATING AT 95%. MANAGER OPERATIONS RESEARCH SINUS RHYTHM 89. LEFT FOREARM IV INFILTRATED, REMOVED, WILL CHANGE IV SITE. PATIENT NOTED IRRITABLE, AND UPSET. ALLOWED PATIENT TO VENT FEELINGS. CONNER CATHETER WITH YELLOW URINE. HOB ELEVATED, BILATERAL HALF SIDE RAILS UP X2. BED IN LOW POSITION, EXIT ALARM ON, CALL LIGHT IN REACH. KEPT CLEAN AND COMFORTABLE.
[2022-10-01 08:00] VITALS: BP 110/65
[2022-10-01] MEDS: AMLODIPINE BESYLATE 5 MG TABLET PO SCH (09:30)
[2022-10-01] MEDS: METOPROLOL SUCCINATE 50 MG TAB.SR.24H PO SCH (09:30)
[2022-10-01] MEDS: CLOPIDOGREL BISULFATE 75 MG TABLET PO SCH (09:30)
[2022-10-01] MEDS: POLYETHYLENE GLYCOL 3350 17 GM POWD.PACK PO SCH (09:30)
[2022-10-01] MEDS: COLCHICINE 0.6 MG TABLET PO SCH (09:32)
[2022-10-01] MEDS: EZETIMIBE 10 MG TABLET PO SCH (09:32)
[2022-10-01] MEDS: FENOFIBRATE NANOCRYS (145 MG) 145 MG TABLET PO SCH (09:33)
[2022-10-01] MEDS: HEPARIN SODIUM, PORCINE 5000 UNITS/1 ML VIAL SQ SCH ×2 (09:35→21:43)
[2022-10-01] MEDS: FLUTICASONE PROPIONATE 16 GM BOTTLE NS SCH ×2 (09:43→16:33)
[2022-10-01 11:28] LABS: CALCIUM, SERUM 9.2 mg/dL (8.5-10.1); CARBON DIOXIDE 36 mmol/L (21-32); CHLORIDE 94 mmol/L (98-107); CREATININE 2.1 mg/dL (0.6-1.3); GLUCOSE 251 mg/dL (74-106); POTASSIUM 4.7 mmol/L (3.5-5.1); SODIUM SERUM 135 mmol/L (136-145)
[2022-10-01 11:40] LABS: UREA NITROGEN, BLOOD 89 mg/dL (7-18)
[2022-10-01 12:00] VITALS: BP 142/62
[2022-10-01 16:00] VITALS: BP 111/63
--- NOTE | 2022-10-01 18:30 | NUR ---
RUBBER COMPOUNDER MIXER CLOSING NOTE: ALERT X3. ON O2 ORDERED. TELEGRAPH OPERATOR SINUS RHYTHM 89. IV ON RIGHT FOREARM PATENT, SALINE LOCKED, NO S/S OF COMPLICATIONS. PATIENT WAS NON COMPLIANT WITH BREATHING TREATMENTS, LABS, PT, AND REFUSING ROUTINE CARE BY MALE CONSERVATION OFFICER, RISK VS BENEFITS EXPLAINED, VERBALIZED UNDERSTANDING, SPOKE TO CHARI GRAND DAUGHTER AND SPOKE TO PATIENT. PATIENT ALLOWED BLOOD DRAW AND TO BE CLEANED BY FEMALE NURSE ONLY. BLOOD GLUCOSE CHECKED, COVERED ORDERED. HOB ELEVATED. BED IN LOW POSITION, LOCKED, EXIT ALARM ON. CALL LIGHT IN REACH. KEPT CLEAN AND COMFORTABLE. Addendum: 10/01/22 at 2028 by MEGHANA VALENZUELA RN DOCTOR FUNG WAS HERE IN AM AND INFORMED OF PATIENT NON COMPLIANCE.
--- NOTE | 2022-10-01 19:30 | NUR ---
TIME CLOCK INSPECTOR OPENING NOTE RECEIVED PT AWAKE IN BED. A/O X3, ARMENIA SPEAKING. ON O2 VIA NC 4L, ON HIGH FOWLERS, C/O SOB SATTING AT 91%, INCREASED O2 TO 5L AND PT VERBALIZED IMPROVEMENT, O2 AT AT 96%. LICENSED PSYCHIATRIC TECHNICIAN SINUS RHYTHM 90. IV ACCESS ON RFA #20G, SL, PATENT, INTACT, FLUSHING WELL. CONNER CATHETER IN PLACE, WITH CLEAR YELLOW URINE NOTED. SAFETY PRECAUTIONS IN PLACE: BED LOCKED AND IN LOW POSITION, BED ALARM ON, SIDE RAILS UP X3, CALL LIGHT AND TRAY TABLE WITHIN REACH. WILL CONTINUE TO MONITOR AND ASSIST.
[2022-10-01 20:00] VITALS: BP 134/64
[2022-10-01] MEDS ORDERED: INSULIN GLARGINE, 100 UNIT/ML CARTRIDGE SQ SCH (22:00)
[2022-10-01] MEDS: *INSULIN REGULAR(HUMULIN R)HUM 100 UNIT/ML VIAL SQ PRN (22:09)
[2022-10-02] VITALS: BP 105/69
--- NOTE | 2022-10-02 00:26 | NUR ---
RT NOTE Pt rec'd on 5lnc. pt awake and alert. pt refused bipap and is unable to tolerate. pt shows no signs of resp distress. RN aware Addendum: 10/02/22 at 0027 by NORBERT INMAN RT Amended: Links added.
[2022-10-02] MEDS: IPRATROPIUM NEB FS 0.5 MG/2.5 ML AMPUL.NEB NEB SCH ×2 (01:30→07:35)
--- NOTE | 2022-10-02 01:37 | NUR ---
RN NOTE PT REQUESTING BLOOD SUGAR CHECK: 204. PT NOW REQUESTING INSULIN COVERAGE. EXPLAINED TO PT THAT SHE WAS GIVEN THE INSULIN LANTUS EARLIER AND THAT IT WILL COVER HER HIGH BLOOD SUGAR LEVEL THROUGHOUT THE NIGHT BUT PT REFUSES TO STATE UNDERSTANDING. KEEPS SAYING NO AND TO COME BACK WITH INSULIN. CHARGE NURSE AWARE. WILL KEEP EDUCATING PT IF NEEDED.
[2022-10-02 04:00] VITALS: BP 150/71
[2022-10-02] MEDS: CEFEPIME 2 GM in IV D5W 100 ML IV SCH (05:14)
--- NOTE | 2022-10-02 07:00 | NUR ---
OUTPATIENT RECEPTIONIST CLOSING NOTE PT ASLEEP IN BED. A/O X3, FRENCH SPEAKING, UNDERSTANDS SOME DIVEHI. STABLE ON O2 VIA NC 5L, ON HIGH FOWLERS, NO S/S OF SOB OR LABORED BREATHING, SATTING AT 98%. DENIES PAIN AT THIS TIME. QUALITY REP SINUS RHYTHM 82. IV ACCESS ON RFA #20G, SL, PATENT, INTACT, FLUSHING WELL. CONNER CATHETER IN PLACE, WITH CLEAR YELLOW URINE NOTED. ALL CARE PROVIDED AND MEDS TOLERATED WELL. SAFETY PRECAUTIONS MAINTAINED: BED LOCKED AND IN LOW POSITION, BED ALARM ON, SIDE RAILS UP X3, CALL LIGHT AND TRAY TABLE WITHIN REACH. WILL ENDORSE NATE TO DAY SHIFT NURSE.
[2022-10-02] MEDS: BLOOD SUGAR DIAGNOSTIC 1 EACH STRIP IN SCH ×2 (07:42→12:00)
[2022-10-02] MEDS: INSULIN REGULAR, HUMAN 100 UNIT/ML 3 ML VIAL SQ PRN (07:43)
[2022-10-02 08:00] VITALS: BP 154/70
[2022-10-02] MEDS: AMLODIPINE BESYLATE 5 MG TABLET PO SCH (08:43)
[2022-10-02] MEDS: HEPARIN SODIUM, PORCINE 5000 UNITS/1 ML VIAL SQ SCH (08:43)
[2022-10-02] MEDS: CLOPIDOGREL BISULFATE 75 MG TABLET PO SCH (08:43)
[2022-10-02] MEDS: FENOFIBRATE NANOCRYS (145 MG) 145 MG TABLET PO SCH (08:43)
[2022-10-02] MEDS: METOPROLOL SUCCINATE 50 MG TAB.SR.24H PO SCH (08:47)
[2022-10-02] MEDS: POLYETHYLENE GLYCOL 3350 17 GM POWD.PACK PO SCH (08:48)
[2022-10-02] MEDS: COLCHICINE 0.6 MG TABLET PO SCH (08:48)
[2022-10-02] MEDS: EZETIMIBE 10 MG TABLET PO SCH (09:24)
[2022-10-02] MEDS: FLUTICASONE PROPIONATE 16 GM BOTTLE NS SCH (09:25)
[2022-10-02 10:08] LABS: FERRITIN 379 ng/mL (8-388)
--- NOTE | 2022-10-02 10:41 | NUR ---
NOTIFY DR FUNG THAT PATIENT REFUSED TO GET THE BLOOD DRAWN. DR ORDERED TO CHECK OXYGEN SATURATION WITH 3L/MIN 02. CHECKED SPO2 WITH 3L/MIN, SPO2-100%, PATIENT IS NOT HAVING SHORT OF BREATH.
--- NOTE | 2022-10-02 11:30 | NUR ---
PATIENT WANTS TO LEAVE AMA, PREETI MARCELINO AND DR FUNG WERE PRESENT, PATIENT SIGNED AMA.
[2022-10-02 12:00] VITALS: BP 148/66
--- NOTE | 2022-10-02 13:53 | NUR ---
PATIENT LEFT AMA, INTERNAL CONTROL MANAGER WHEELED HER TO THE LOBBY AND PICKED UP BY GRANDDAUGHTER, IS AWARE.
== END 2022-10-02 13:15 | disposition left against medical advice (07) | DRG 871 ==
LOC: ER 22:41 → TELE1 09-26 02:56 → ICU 09-26 09:51 → TELE1 09-27 17:24
PROVIDERS: ADMIT Nurse Practitioner Family; ATTEND Student in an Organized Health Care Education/Training Program
DX: A41.9 Sepsis, unspecified organism (principal); I21.A1 Myocardial infarction type 2; I50.23 Acute on chronic systolic (congestive) heart failure; J96.21 Acute and chronic respiratory failure with hypoxia; J96.22 Acute and chronic respiratory failure with hypercapnia; N17.0 Acute kidney failure with tubular necrosis; J15.6 Pneumonia due to other Gram-negative bacteria; I13.0 Hypertensive heart and chronic kidney disease with heart failure and stage 1 through stage 4 chronic kidney disease, or unspecified chronic kidney disease; E87.1 Hypo-osmolality and hyponatremia; N39.0 Urinary tract infection, site not specified; D63.8 Anemia in other chronic diseases classified elsewhere; I27.20 Pulmonary hypertension, unspecified; I25.10 Atherosclerotic heart disease of native coronary artery without angina pectoris; E11.22 Type 2 diabetes mellitus with diabetic chronic kidney disease; E66.01 Morbid (severe) obesity due to excess calories; I48.91 Unspecified atrial fibrillation; I70.0 Atherosclerosis of aorta; J45.909 Unspecified asthma, uncomplicated; K59.00 Constipation, unspecified; N18.9 Chronic kidney disease, unspecified; Z53.29 Procedure and treatment not carried out because of patient's decision for other reasons; Z87.01 Personal history of pneumonia (recurrent)
CPT/HCPCS: 36415; 36600; 71045-TC; 76770-TC; 78582; 80048-TC; 80053-TC; 80061-TC; 80076-TC; 81001; 82607-TC; 82728-TC; 82962-TC; 83540-TC; 83605-TC; 83735-TC; 83880; 84100-TC; 84443-TC; 84484-TC; 85025-TC; 85396; 85730-TC; 87040-TC; 87081-TC; 87086-TC; 93307-TC; 93970-TC; 94799-TC; 97112-TC; 97116-TC; 97530-TC; A4223; A6403; A9540; A9567; C9803; G0378; J0692; J1644; J1815; J1940; J3420; J3490; J7050; J7060